=== PATIENT | female | born 1950 | race Caucasian/White ===

== ENCOUNTER 2017-02-01 09:40 | Outpatient (CLI) | payer OTHER ==
--- NOTE | 2017-02-01 14:59 | DIAGNOSTIC IMAGING REPORT ---
PROCEDURE: MG BILATERAL SCREENING W/CAD INDICATION: Screening, personal history of benign left stereotactic biopsy. Family history of breast cancer in the mother TECHNIQUE: Standard CC and MLO views bilaterally. Computer aided detection was used. COMPARISON: None available. Patient reports prior mammograms in [place]. FINDINGS: Moderately dense, heterogeneous, nodular fibroglandular tissue is present bilaterally. Biopsy clip present at the 12 o'clock left breast at a posterior depth. No developing densities, areas of architectural distortion, or suspicious microcalcifications. IMPRESSION: 1. Probably normal mammograms without radiographic evidence of malignancy. 2. An addendum will be issued when comparison films become available. RESULT CODE: 0- Incomplete; needs additional evaluation. A. A negative report should not delay biopsy if a dominant or clinically suspicious mass is present. 10-15% of cancers are not identified by x-ray. B. A negative report may reinforce clinical impression. C. Adenosis and dense breasts may obscure an underlying neoplasm. D. False positive reports average 6-10%. E.. A yearly screening mammogram is recommended. A reminder letter will be scheduled.
== END 2017-02-01 23:00 ==
LOC: MAM SRH 09:40
DX: Z12.31 Encounter for screening mammogram for malignant neoplasm of breast (principal); Z80.3 Family history of malignant neoplasm of breast

== ENCOUNTER 2017-04-24 16:39 | Emergency (ER) | payer OTHER ==
--- NOTE | 2017-04-24 20:44 | ED NURSING NOTES ---
Clinical Report - Nurses [facility] [address] [place] [address] 04/24/2017 16:39 Patient: TANO MASTERS TRIAGE Triage time 16:57 Apr 24 2017. Acuity: LEVEL 3. Chief Complaint: LOW BACK PAIN and ABNORMAL BLEEDING. Alert. No acute distress. SEPSIS SCREEN: Sepsis Screen. Negative (no infection suspected/documented). --17:08 Jennie Yañez R.N. 16:57 04/24/17. BP: 151/103. HR: 69. RR: 16. O2 saturation: 92%. Temp: 90 F. Pain level now: 04/10. --17:08 Jennie Yañez R.N. Weight: 73.4 kg stated. Height/Length: 65 inches Per Patient. BMI: 27. --17:06 Jennie Yañez R.N. Medications AllerClear. --16:59 Jennie Yañez R.N. Atenolol Oral (Tablet 50 mg) 1 tablet, daily. --16:59 Jennie Yañez R.N. BuPROPion HCl Oral 150 mg, daily. --16:59 Jennie Yañez R.N. Carvedilol Phosphate ER Oral (Capsule Extended Release 24 Hour 80 mg) 12.5 mg, twice daily. --17:00 Jennie Yañez R.N. Citalopram Hydrobromide Oral (Tablet 40 mg) 1 tablet, daily. --17:00 Jennie Yañez R.N. Fluticasone Propionate Nasal. --17:01 Jennie Yañez R.N. Lactulose Oral (Solution 10 gm/15mL) 1 tablespoon, 3x a day. --17:01 Jennie Yañez R.N. Lisinopril Oral (Tablet 30 mg) 1 tablet, daily. --17:02 Knebel, Jennie, R.N. Ocuvite Oral. --17:02 Jennie Yañez R.N. Ranitidine HCl Oral. --17:02 Jennie Yañez R.N. Trospium Chloride Oral. --17:03 Jennie Yañez R.N. Allergies None. --17:03 Jennie Yañez R.N. History Arrived by private vehicle. Historian: patient. Accompanied by family. Onset. (3 days ago). 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 PAST MEDICAL HX: Immunizations: up-to-date. SOCIAL HX: Smoker- current status unknown. No alcohol use or drug use. No infectious disease exposure. SELF HARM ASSESSMENT: A self harm assessment was performed. The patient answered "no" to the question "Do you have thoughts of harming or killing yourself?". Family at bedside. ABUSE ASSESSMENT: Abuse assessment: The patient was asked "Do you feel safe in your home?". FALL RISK ASSESSMENT: Fall risk assessment completed. Risk factors identified include patient impairment of mobility. --17:08 Jennie Yañez R.N. PROBLEMS: Monitoring liver. Hypertension. --17:05 Jennie Yañez R.N. Interventions ID band on patient. To room. --17:08 Jennie Yañez R.N. PHYSICAL ASSESSMENT Ambulatory to room. GENERAL / NEURO / PSYCH: Alert. Oriented X 4. Appears in pain. RESPIRATORY: Respirations not labored. CVS: Capillary refill less than 2 seconds. GI / : Abdomen soft and nontender. SKIN: Skin is warm and dry. --17:12 Jennie Yañez R.N. NURSING PROGRESS NOTES Pulse oximeter and NIBP monitor placed on patient; monitoring specialist- Lead II; monitor alarms on. Patient gowned. Head of bed elevated. Patient identifiers checked. Call light placed in reach. Side rails up x 1. Bed placed in lowest position. Brakes of bed on. --17:12 Jennie Yañez R.N. PELVIC EXAM: Preparation. (set up for pelvic exam). --17:19 Jennie Yañez R.N. 18:53 04/24/2017 Site #1 started via IV in the left wrist with an 22g angiocath, with aseptic technique and good blood return; two attempts. Blood drawn: rainbow set. Labeled in the presence of the patient and sent to the lab. Saline lock flushed with 10 mL saline. --18:53 Jennie Yañez R.N. 19:48 04/24/17. BP: 172/82. HR: 68. RR: 16. O2 saturation: 96%. Pain level now: 04/10. --19:50 Jennie Yañez R.N. 19:50. Checked patient name and birthdate: patient confirmed. Blood samples drawn from the right forearm by tech per protocol ; labeled in presence of the patient and sent to lab. (ammonia (green top on ice)). --19:54 Lisa Forman, NITHIN Tech1. DISPOSITION / DISCHARGE Departure time: 21:Apr 24 2017. Condition at departure: unchanged. No learning barriers present. Discharge instructions provided and reviewed with the patient. Reviewed medication(s) side effects, precautions, dosing and course information. Prescription(s) given to the patient. Reviewed referral to a primary care physician for followup. Patient verbalized understanding. Written instructions provided in Turkish. The patient was discharged home and accompanied by family. She left the Emergency Department ambulatory and via private vehicle. Family member driving. FALL RISK ASSESSMENT: Fall risk assessment completed. No fall risk identified. --21:10 Jennie Yañez R.N. 21:11 04/24/17. BP: 164/85. HR: 72. RR: 16. O2 saturation: 97%. Pain level now: 04/10. --21:11 Jennie Yañez R.N. Locked/Released at 04/24/2017 21:11 by Jennie Yañez R.N.
--- NOTE | 2017-04-24 20:44 | ED NURSING NOTES ---
Clinical Report - Nurses [facility] [address] [place] [address] 04/24/2017 16:39 Patient: TANO MASTERS TRIAGE Triage time 16:57 Apr 24 2017. Acuity: LEVEL 3. Chief Complaint: LOW BACK PAIN and ABNORMAL BLEEDING. Alert. No acute distress. SEPSIS SCREEN: Sepsis Screen. Negative (no infection suspected/documented). --17:08 Jennie Yañez R.N. 16:57 04/24/17. BP: 151/103. HR: 69. RR: 16. O2 saturation: 92%. Temp: 90 F. Pain level now: 04/10. --17:08 Jennie Yñaez R.N. Weight: 73.4 kg stated. Height/Length: 65 inches Per Patient. BMI: 27. --17:06 Jennie Yañez R.N. Medications AllerClear. --16:59 Jennie Yañez R.N. Atenolol Oral (Tablet 50 mg) 1 tablet, daily. --16:59 Jennie Yañez R.N. BuPROPion HCl Oral 150 mg, daily. --16:59 Jennie Yañez R.N. Carvedilol Phosphate ER Oral (Capsule Extended Release 24 Hour 80 mg) 12.5 mg, twice daily. --17:00 Jennie Yañez R.N. Citalopram Hydrobromide Oral (Tablet 40 mg) 1 tablet, daily. --17:00 Jennie Yañez R.N. Fluticasone Propionate Nasal. --17:01 Jennie Yañez R.N. Lactulose Oral (Solution 10 gm/15mL) 1 tablespoon, 3x a day. --17:01 Jennie Yañez R.N. Lisinopril Oral (Tablet 30 mg) 1 tablet, daily. --17:02 Knebel, Jennie, R.N. Ocuvite Oral. --17:02 Jennie Yañez R.N. Ranitidine HCl Oral. --17:02 Jennie Yañez R.N. Trospium Chloride Oral. --17:03 Jennie Yañez R.N. Allergies None. --17:03 Jennie Yañez R.N. History Arrived by private vehicle. Historian: patient. Accompanied by family. Onset. (3 days ago). 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 PAST MEDICAL HX: Immunizations: up-to-date. SOCIAL HX: Smoker- current status unknown. No alcohol use or drug use. No infectious disease exposure. SELF HARM ASSESSMENT: A self harm assessment was performed. The patient answered "no" to the question "Do you have thoughts of harming or killing yourself?". Family at bedside. ABUSE ASSESSMENT: Abuse assessment: The patient was asked "Do you feel safe in your home?". FALL RISK ASSESSMENT: Fall risk assessment completed. Risk factors identified include patient impairment of mobility. --17:08 Jennie Yañez R.N. PROBLEMS: Monitoring liver. Hypertension. --17:05 Jennie Yañez R.N. Interventions ID band on patient. To room. --17:08 Jennie Yañez R.N. PHYSICAL ASSESSMENT Ambulatory to room. GENERAL / NEURO / PSYCH: Alert. Oriented X 4. Appears in pain. RESPIRATORY: Respirations not labored. CVS: Capillary refill less than 2 seconds. GI / : Abdomen soft and nontender. SKIN: Skin is warm and dry. --17:12 Jennie Yañez R.N. NURSING PROGRESS NOTES Pulse oximeter and NIBP monitor placed on patient; shank cutter- Lead II; monitor alarms on. Patient gowned. Head of bed elevated. Patient identifiers checked. Call light placed in reach. Side rails up x 1. Bed placed in lowest position. Brakes of bed on. --17:12 Jennie Yañez R.N. PELVIC EXAM: Preparation. (set up for pelvic exam). --17:19 Jennie Yañez R.N. 18:53 04/24/2017 Site #1 started via IV in the left wrist with an 22g angiocath, with aseptic technique and good blood return; two attempts. Blood drawn: rainbow set. Labeled in the presence of the patient and sent to the lab. Saline lock flushed with 10 mL saline. --18:53 Jennie Yañez R.N. 19:48 04/24/17. BP: 172/82. HR: 68. RR: 16. O2 saturation: 96%. Pain level now: 04/10. --19:50 Jennie Yañez R.N. 19:50. Checked patient name and birthdate: patient confirmed. Blood samples drawn from the right forearm by tech per protocol ; labeled in presence of the patient and sent to lab. (ammonia (green top on ice)). --19:54 Lisa Forman, NITHIN Tech1. DISPOSITION / DISCHARGE Departure time: 21:Apr 24 2017. Condition at departure: unchanged. No learning barriers present. Discharge instructions provided and reviewed with the patient. Reviewed medication(s) side effects, precautions, dosing and course information. Prescription(s) given to the patient. Reviewed referral to a primary care physician for followup. Patient verbalized understanding. Written instructions provided in Tanzanian. The patient was discharged home and accompanied by family. She left the Emergency Department ambulatory and via private vehicle. Family member driving. FALL RISK ASSESSMENT: Fall risk assessment completed. No fall risk identified. --21:10 Jennie Yañez R.N. 21:11 04/24/17. BP: 164/85. HR: 72. RR: 16. O2 saturation: 97%. Pain level now: 04/10. --21:11 Jennie Yañez R.N. Locked/Released at 04/24/2017 21:11 by Jennie Yañez R.N.
--- NOTE | 2017-04-24 20:44 | ED ORDER SUMMARY ---
..... Patient: TANO MASTERS OrderSheet [facility] VisitID: [id number] [place] [address] 66y, F Registration Date/Time: 04/24/2017 ORDER SHEET Weight: 73.4 kg (stated) Allergies: None GENERAL ORDERS: GC/Chlamydia (Cervix) (cervix) Urgent (17:15 04/24/2017 Shen NAIK) (Ack 17:17 Gildardo) (19:22 KKnebel R.N.) Wet Prep (Cervix) (cervix) Urgent (17:16 04/24/2017 Shen NAIK) (Ack 17:17 Gildardo) (19:22 KKnebel R.N.) CBC w Diff Urgent (17:16 04/24/2017 Shen NAIK) (Ack 17:17 Gildardo) (18:53 KKnebel R.N.) CMP Urgent (17:16 04/24/2017 Shen NAIK) (Ack 17:17 Gildardo) (18:53 KKnebel R.N.) UA-Culture if indicated Urgent (17:16 04/24/2017 Shen NAIK) (Ack 17:17 Gildardo) (19:21 KKnebel R.N.) Amylase Urgent (17:16 04/24/2017 Shen NAIK) (Ack 17:17 Gildardo) (18:53 KKnebel R.N.) Lipase Urgent (17:16 04/24/2017 Shen NAIK) (Ack 17:17 Gildardo) (18:53 KKnebel R.N.) Ammonia Level Urgent (17:16 04/24/2017 Shen NAIK) (Ack 17:17 Gildardo) (18:53 KKnebel R.N.) Pelvic Exam Setup (17:16 04/24/2017 Shen NAIK) (18:00 ALawrence ER Tech1) MEDICATION ORDERS: IV FLUIDS: IV Saline Lock (17:16 04/24/2017 Shen NAIK) (18:54 KKnebel R.N.) ORDER SHEET NOTES: [Electronically signed by Jennie Yañez R.N. (21:11 04/24/2017)] [Electronically signed by Td Dial MD (03:04 05/02/2017)] [Electronically locked/signed by Jennie Yañez R.N. (21:11 04/24/2017)]
--- NOTE | 2017-04-24 20:44 | ED CLINICAL REPORT ---
Clinical Report - Physicians/Mid Levels [facility] [address] [place] [address] 04/24/2017 16:39 Patient: TANO MASTERS Time Seen: 17:05. Arrived- By private vehicle. Historian- patient. HISTORY OF PRESENT ILLNESS Chief Complaint: BACK PAIN. It is described as being moderate in degree and in the area of the lower lumbar spine. The quality is noted to be aching. No radiation. Onset- several days ago and it is still present. It was gradual in onset and has been constant. No bladder dysfunction, bowel dysfunction, sensory loss or motor loss. Patient denies an injury. REVIEW OF SYSTEMS No chills, fever, sweats, calf pain or chest pain. No cough, difficulty breathing, pedal edema, palpitations or abdominal pain. No black stools, bloody stools, constipation, diarrhea or nausea. No vomiting or urinary problems. The patient has had abnormal bleeding (this was noted on her undewear. It is not clear where it originated from). Her periods have consisted of spotting only. All systems otherwise negative, except as recorded above. SOCIAL HISTORY Never smoker. No alcohol use or drug use. FAMILY HISTORY Denies family medical history. ADDITIONAL NOTES The nursing notes have been reviewed. PHYSICAL EXAM Vital Signs: 04/24/2017 16:57 BP: 151/103. HR: 69. RR: 16. O2 saturation: 92%. Temp: 90 F. Pain level now: 5/10. Have been reviewed. Appearance: Alert. Eyes: Pupils equal, round and reactive to light. ENT: Pharynx normal. Neck: Normal inspection. Neck nontender. Painless ROM. CVS: Heart sounds normal. Respiratory: No respiratory distress. Breath sounds normal. Abdomen: No visible injury. Soft. Distention (mild - with a positive fluid wave). Back: Normal inspection. Painless ROM. : Normal external exam. Speculum exam normal. No vaginal bleeding. Bimanual exam normal. No tenderness present on bimanual exam. Rectal: Rectal exam normal and nontender. Stool heme negative. (POC test reference range: negative). Skin: Skin warm and dry. Normal skin color. Normal skin turgor. Extremities: Extremities exhibit normal ROM. Extremities nontender. No calf tenderness. LABS, X-RAYS, AND EKG Laboratory Tests: UA-Culture if indicated: (MARILY: 04/24/2017 19:10) ( [facility] 04/24/2017 19:38) Final results Test Result Flag Units (Reference) URINE COLOR YELLOW URINE APPEARANCE CLEAR URINE GLUCOSE NEGATIVE (NEGATIVE) URINE BILIRUBIN NEGATIVE (NEGATIVE) URINE KETONE NEGATIVE (NEGATIVE) URINE SPECIFIC GRAVITY >= 1.030 (1.010-1.030) URINE PH 6.0 (5.0-8.0) URINE PROTEIN NEGATIVE (NEGATIVE) URINE UROBILINOGEN 0.2 EU/dL (0.2-1.0) URINE NITRITE NEGATIVE (NEGATIVE) URINE BLOOD NEGATIVE (NEGATIVE) URINE LEUK ESTERASE NEGATIVE (NEGATIVE) URINE RBC NONE SEEN rbc/hpf (0-1) URINE WBC 0-1 wbc/hpf (0-1) URINE EPITHELIAL CELLS 1-3 EPI/hpf (0-5) URINE BACTERIA TRACE (<1+) (NONE SEEN) URINE COMMENT CULT NOT INDICATED 1+ AMORPHOUSURINE CULTURES ARE SET-UP BASED ON THE FOLLOWING CRITERIA:POSITIVE NITRITEPOSITIVE LEUKOCYTE ESTERASEGREATER THAN 10 WHITE BLOOD CELLSMODERATE (2+) OR GREATER BACTERIA CBC w Diff: (MARILY: 04/24/2017 18:45) ( [facility] 04/24/2017 19:23) Final results Test Result Flag Units (Reference) WHITE BLOOD COUNT 9.6 K/uL (4.5-11.5) RED BLOOD COUNT 4.45 M/uL (4.00-5.20) HEMOGLOBIN 14.1 gm/dL (12.0-16.0) HEMATOCRIT 41.3 % (36.0-46.0) MEAN CELL VOLUME 93 fL (80-100) MEAN CORPUSCULAR HGB 32 pg (26-34) MEAN CORPUSCULAR HGB CONC 34 g/dL (31-37) RED CELL DISTRIBUTION WIDTH 12.6 % (11.6-14.8) PLATELET COUNT 155 K/uL (150-400) NEUTROPHIL % 52.9 % (50-75) LYMPH % 35.7 % (25-40) MONO % 8.4 % (3-14) EOSINOPHIL % 1.6 % (0-4) BASOPHIL % 1.4 % (0-2) Ammonia Level: (MARILY: 04/24/2017 19:50) ( [facility] [place] 20:30) Final results Test Result Flag Units (Reference) AMMONIA 8 L umol/L (11-32) CMP: (MARILY: 04/24/2017 18:45) ( [facility] [place] 19:38) Final results Test Result Flag Units (Reference) GLUCOSE 103 mg/dL (70-110) BUN 14 mg/dL (7-18) CREATININE 0.8 mg/dL (0.6-1.3) Estimated GFR >60 mL/min Estimated GFR- >60 mL/min Note: Persistent reduction over 3 months in eGFR<60 mL/min/1.73 m2 defines CKD. Patients with eGFR values>=60 mL/min/1.73 m2 may also have CKD if evidence ofpersistent proteinuria. Additional information may be foundat www.kidney.org. SODIUM 141 mmol/L (136-145) POTASSIUM 4.2 mmol/L (3.5-5.1) CHLORIDE 106 mmol/L (98-107) CARBON DIOXIDE 25 mmol/L (21-32) CALCIUM 9.0 mg/dL (8.5-10.1) TOTAL PROTEIN 7.5 g/dL (6.4-8.2) ALBUMIN 3.4 g/dL (3.3-5.0) BILIRUBIN, TOTAL 1.3 H mg/dL (0.0-1.0) ALKALINE PHOSPHATASE 100 U/L (46-116) AST (SGOT) 39 H U/L (15-37) ALT (SGPT) 50 U/L (12-78) LIPASE 170 U/L (73-393) AMYLASE 69 U/L (25-115) 2017:[id number]: (MARILY: 04/24/2017 19:10) ( [facility] 04/27/2017 06:08) Final results SPECIMEN DESCRIPTION: CERVIX Test Result Flag Units (Reference) CHLAMYDIA TRACHOMATIS EDWIN Negative NEISSERIA GONORRHOEAE EDWIN Negative Performed at: [facility] [address] [id number] Curing Machine Operator: Arnulfo Lu MD, Phone: [phone] Wet Prep: (MARILY: 04/24/2017 19:10) ( MsgRcvd 04/24/2017 19:31) Final results SPECIMEN DESCRIPTION: CERVIX Test Result Flag Units (Reference) WET MOUNT CLUE CELLS:: MODERATE * EPITHELIAL CELLS: MODERATE -- SOURCE?: CERVIX WHITE BLOOD CELLS: MODERATE TRICHOMONAS:: CERVIX -- YEAST:: NONE . PROGRESS AND PROCEDURES Course of Care: Patient is stable. Patient/family counseled. Old medical records reviewed. Disposition: Discharged. Condition: stable. CLINICAL IMPRESSION Nontraumatic lumbar back pain. possible bleeding - uncertain source. INSTRUCTIONS No lifting greater than 5 lbs or no bending or stooping. Warnings: Further evaluation is necessary in order to conduct further tests and assess the possibility of serious illness. It is very important to follow up with a physician. GENERAL WARNINGS: Return or contact your physician immediately if your condition worsens or changes unexpectedly, if not improving as expected, or if other problems arise. Your Current Medications: CONTINUE TAKING THE FOLLOWING MEDICATIONS: AllerClear*. Atenolol Oral : Tablet 50 mg, 1 tablet daily. BuPROPion HCl Oral : 150 mg daily. Carvedilol Phosphate ER Oral : Capsule Extended Release 24 Hour 80 mg, 12.5 mg twice daily. Citalopram Hydrobromide Oral : Tablet 40 mg, 1 tablet daily. Fluticasone Propionate Nasal. Lactulose Oral : Solution 10 gm/15mL, 1 tablespoon 3x a day. Lisinopril Oral : Tablet 30 mg, 1 tablet daily. Ocuvite Oral. Ranitidine HCl Oral. Trospium Chloride Oral. OTC Medications: Motrin (available over the counter): take according to label instructions. Follow-up: Follow up with your doctor VERONICA SEO in seven days. Call for the next available appointment. Understanding of the discharge instructions verbalized by patient and family. (Electronically signed by Td Dial MD 05/02/2017 3:04) Addenda for TANO MASTESR VisitID: [id number] Date: 04/24/2017 04/25/2017 13:27 contact made with pt's daughter, called rx for Metronidiazole 500 mg 1 po bid #14, to [facility] on [address] (Electronically signed by Therese Johns R.N. - 04/25/2017 13:27)
--- NOTE | 2017-04-24 20:44 | ED CLINICAL REPORT ---
Clinical Report - Physicians/Mid Levels [facility] [address] [place] [address] 04/24/2017 16:39 Patient: TANO MASTERS Time Seen: 17:05. Arrived- By private vehicle. Historian- patient. HISTORY OF PRESENT ILLNESS Chief Complaint: BACK PAIN. It is described as being moderate in degree and in the area of the lower lumbar spine. The quality is noted to be aching. No radiation. Onset- several days ago and it is still present. It was gradual in onset and has been constant. No bladder dysfunction, bowel dysfunction, sensory loss or motor loss. Patient denies an injury. REVIEW OF SYSTEMS No chills, fever, sweats, calf pain or chest pain. No cough, difficulty breathing, pedal edema, palpitations or abdominal pain. No black stools, bloody stools, constipation, diarrhea or nausea. No vomiting or urinary problems. The patient has had abnormal bleeding (this was noted on her undewear. It is not clear where it originated from). Her periods have consisted of spotting only. All systems otherwise negative, except as recorded above. SOCIAL HISTORY Never smoker. No alcohol use or drug use. FAMILY HISTORY Denies family medical history. ADDITIONAL NOTES The nursing notes have been reviewed. PHYSICAL EXAM Vital Signs: 04/24/2017 16:57 BP: 151/103. HR: 69. RR: 16. O2 saturation: 92%. Temp: 90 F. Pain level now: 5/10. Have been reviewed. Appearance: Alert. Eyes: Pupils equal, round and reactive to light. ENT: Pharynx normal. Neck: Normal inspection. Neck nontender. Painless ROM. CVS: Heart sounds normal. Respiratory: No respiratory distress. Breath sounds normal. Abdomen: No visible injury. Soft. Distention (mild - with a positive fluid wave). Back: Normal inspection. Painless ROM. : Normal external exam. Speculum exam normal. No vaginal bleeding. Bimanual exam normal. No tenderness present on bimanual exam. Rectal: Rectal exam normal and nontender. Stool heme negative. (POC test reference range: negative). Skin: Skin warm and dry. Normal skin color. Normal skin turgor. Extremities: Extremities exhibit normal ROM. Extremities nontender. No calf tenderness. LABS, X-RAYS, AND EKG Laboratory Tests: UA-Culture if indicated: (MARILY: 04/24/2017 19:10) ( [facility] 04/24/2017 19:38) Final results Test Result Flag Units (Reference) URINE COLOR YELLOW URINE APPEARANCE CLEAR URINE GLUCOSE NEGATIVE (NEGATIVE) URINE BILIRUBIN NEGATIVE (NEGATIVE) URINE KETONE NEGATIVE (NEGATIVE) URINE SPECIFIC GRAVITY >= 1.030 (1.010-1.030) URINE PH 6.0 (5.0-8.0) URINE PROTEIN NEGATIVE (NEGATIVE) URINE UROBILINOGEN 0.2 EU/dL (0.2-1.0) URINE NITRITE NEGATIVE (NEGATIVE) URINE BLOOD NEGATIVE (NEGATIVE) URINE LEUK ESTERASE NEGATIVE (NEGATIVE) URINE RBC NONE SEEN rbc/hpf (0-1) URINE WBC 0-1 wbc/hpf (0-1) URINE EPITHELIAL CELLS 1-3 EPI/hpf (0-5) URINE BACTERIA TRACE (<1+) (NONE SEEN) URINE COMMENT CULT NOT INDICATED 1+ AMORPHOUSURINE CULTURES ARE SET-UP BASED ON THE FOLLOWING CRITERIA:POSITIVE NITRITEPOSITIVE LEUKOCYTE ESTERASEGREATER THAN 10 WHITE BLOOD CELLSMODERATE (2+) OR GREATER BACTERIA CBC w Diff: (MARILY: 04/24/2017 18:45) ( [facility] 04/24/2017 19:23) Final results Test Result Flag Units (Reference) WHITE BLOOD COUNT 9.6 K/uL (4.5-11.5) RED BLOOD COUNT 4.45 M/uL (4.00-5.20) HEMOGLOBIN 14.1 gm/dL (12.0-16.0) HEMATOCRIT 41.3 % (36.0-46.0) MEAN CELL VOLUME 93 fL (80-100) MEAN CORPUSCULAR HGB 32 pg (26-34) MEAN CORPUSCULAR HGB CONC 34 g/dL (31-37) RED CELL DISTRIBUTION WIDTH 12.6 % (11.6-14.8) PLATELET COUNT 155 K/uL (150-400) NEUTROPHIL % 52.9 % (50-75) LYMPH % 35.7 % (25-40) MONO % 8.4 % (3-14) EOSINOPHIL % 1.6 % (0-4) BASOPHIL % 1.4 % (0-2) Ammonia Level: (MARILY: 04/24/2017 19:50) ( [facility] 04/24/2017 20:30) Final results Test Result Flag Units (Reference) AMMONIA 8 L umol/L (11-32) CMP: (MARILY: 04/24/2017 18:45) ( [facility] 04/24/2017 19:38) Final results Test Result Flag Units (Reference) GLUCOSE 103 mg/dL (70-110) BUN 14 mg/dL (7-18) CREATININE 0.8 mg/dL (0.6-1.3) Estimated GFR >60 mL/min Estimated GFR- >60 mL/min Note: Persistent reduction over 3 months in eGFR<60 mL/min/1.73 m2 defines CKD. Patients with eGFR values>=60 mL/min/1.73 m2 may also have CKD if evidence ofpersistent proteinuria. Additional information may be foundat www.[email or web address].org. SODIUM 141 mmol/L (136-145) POTASSIUM 4.2 mmol/L (3.5-5.1) CHLORIDE 106 mmol/L (98-107) CARBON DIOXIDE 25 mmol/L (21-32) CALCIUM 9.0 mg/dL (8.5-10.1) TOTAL PROTEIN 7.5 g/dL (6.4-8.2) ALBUMIN 3.4 g/dL (3.3-5.0) BILIRUBIN, TOTAL 1.3 H mg/dL (0.0-1.0) ALKALINE PHOSPHATASE 100 U/L (46-116) AST (SGOT) 39 H U/L (15-37) ALT (SGPT) 50 U/L (12-78) LIPASE 170 U/L (73-393) AMYLASE 69 U/L (25-115) 2017:[id number]: (MARILY: 04/24/2017 19:10) ( [facility] 04/27/2017 06:08) Final results SPECIMEN DESCRIPTION: CERVIX Test Result Flag Units (Reference) CHLAMYDIA TRACHOMATIS EDWIN Negative NEISSERIA GONORRHOEAE EDWIN Negative Performed at: [facility] [address] [id number] [place] Molder: Arnulfo Lu MD, Phone: [phone] Wet Prep: (MARILY: 04/24/2017 19:10) ( MsgRcvd 04/24/2017 19:31) Final results SPECIMEN DESCRIPTION: CERVIX Test Result Flag Units (Reference) WET MOUNT CLUE CELLS:: MODERATE * EPITHELIAL CELLS: MODERATE -- SOURCE?: CERVIX WHITE BLOOD CELLS: MODERATE TRICHOMONAS:: CERVIX -- YEAST:: NONE . PROGRESS AND PROCEDURES Course of Care: Patient is stable. Patient/family counseled. Old medical records reviewed. Disposition: Discharged. Condition: stable. CLINICAL IMPRESSION Nontraumatic lumbar back pain. possible bleeding - uncertain source. INSTRUCTIONS No lifting greater than 5 lbs or no bending or stooping. Warnings: Further evaluation is necessary in order to conduct further tests and assess the possibility of serious illness. It is very important to follow up with a physician. GENERAL WARNINGS: Return or contact your physician immediately if your condition worsens or changes unexpectedly, if not improving as expected, or if other problems arise. Your Current Medications: CONTINUE TAKING THE FOLLOWING MEDICATIONS: AllerClear*. Atenolol Oral : Tablet 50 mg, 1 tablet daily. BuPROPion HCl Oral : 150 mg daily. Carvedilol Phosphate ER Oral : Capsule Extended Release 24 Hour 80 mg, 12.5 mg twice daily. Citalopram Hydrobromide Oral : Tablet 40 mg, 1 tablet daily. Fluticasone Propionate Nasal. Lactulose Oral : Solution 10 gm/15mL, 1 tablespoon 3x a day. Lisinopril Oral : Tablet 30 mg, 1 tablet daily. Ocuvite Oral. Ranitidine HCl Oral. Trospium Chloride Oral. OTC Medications: Motrin (available over the counter): take according to label instructions. Follow-up: Follow up with your doctor VERONICA SEO in seven days. Call for the next available appointment. Understanding of the discharge instructions verbalized by patient and family. (Electronically signed by Td Dial MD 05/02/2017 3:04) Addenda for TANO MASTERS VisitID: [id number] Date: 04/24/2017 04/25/2017 13:27 contact made with pt's daughter, called rx for Metronidiazole 500 mg 1 po bid #14, to [facility] on [address] (Electronically signed by Therese Johns R.N. - 04/25/2017 13:27)
--- NOTE | 2017-04-24 20:44 | ED ORDER SUMMARY ---
..... Patient: TANO MASTERS OrderSheet [facility] VisitID: [id number] [place] [address] 66y, F Registration Date/Time: 04/24/2017 ORDER SHEET Weight: 73.4 kg (stated) Allergies: None GENERAL ORDERS: GC/Chlamydia (Cervix) (cervix) Urgent (17:15 04/24/2017 Shen NAIK) (Ack 17:17 Gildardo) (19:22 KKnebel R.N.) Wet Prep (Cervix) (cervix) Urgent (17:16 04/24/2017 Shen NAIK) (Ack 17:17 Gildardo) (19:22 KKnebel R.N.) CBC w Diff Urgent (17:16 04/24/2017 Shen NAIK) (Ack 17:17 Gildardo) (18:53 KKnebel R.N.) CMP Urgent (17:16 04/24/2017 Shen NAIK) (Ack 17:17 Gildardo) (18:53 KKnebel R.N.) UA-Culture if indicated Urgent (17:16 04/24/2017 Shen NAIK) (Ack 17:17 Gildardo) (19:21 KKnebel R.N.) Amylase Urgent (17:16 04/24/2017 Shen NAIK) (Ack 17:17 Gildardo) (18:53 KKnebel R.N.) Lipase Urgent (17:16 04/24/2017 Shen NAIK) (Ack 17:17 Gildardo) (18:53 KKnebel R.N.) Ammonia Level Urgent (17:16 04/24/2017 Shen NAIK) (Ack 17:17 Gildardo) (18:53 KKnebel R.N.) Pelvic Exam Setup (17:16 04/24/2017 Shen NAIK) (18:00 ALawrence ER Tech1) MEDICATION ORDERS: IV FLUIDS: IV Saline Lock (17:16 04/24/2017 Shen NAIK) (18:54 KKnebel R.N.) ORDER SHEET NOTES: [Electronically signed by Jennie Yañez R.N. (21:11 04/24/2017)] [Electronically signed by Td Dial MD (03:04 05/02/2017)] [Electronically locked/signed by Jennie Yañez R.N. (21:11 04/24/2017)]
--- NOTE | 2017-05-02 03:04 | ED DISCHARGE INSTRUCTIONS ---
Patient: TANO MASTERS General Instructions [facility] VisitID: [id number] [place] [address] 66y, F Registration Date/Time: 04/24/2017 Nontraumatic lumbar back pain. INSTRUCTIONS No lifting greater than 5 lbs or no bending or stooping. Warnings: Further evaluation is necessary in order to conduct further tests and assess the possibility of serious illness. It is very important to follow up with a physician. GENERAL WARNINGS: Return or contact your physician immediately if your condition worsens or changes unexpectedly, if not improving as expected, or if other problems arise. Your Current Medications: CONTINUE TAKING THE FOLLOWING MEDICATIONS: AllerClear*. Atenolol Oral : Tablet 50 mg, 1 tablet daily. BuPROPion HCl Oral : 150 mg daily. Carvedilol Phosphate ER Oral : Capsule Extended Release 24 Hour 80 mg, 12.5 mg twice daily. Citalopram Hydrobromide Oral : Tablet 40 mg, 1 tablet daily. Fluticasone Propionate Nasal. Lactulose Oral : Solution 10 gm/15mL, 1 tablespoon 3x a day. Lisinopril Oral : Tablet 30 mg, 1 tablet daily. Ocuvite Oral. Ranitidine HCl Oral. Trospium Chloride Oral. OTC Medications: Motrin (available over the counter): take according to label instructions. Follow-up: Follow up with your doctor VERONICA SEO in seven days. Call for the next available appointment. Understanding of the discharge instructions verbalized by patient and family. ADDITIONAL INFORMATION Back Pain [Acute Or Chronic] Back pain is usually caused by an injury to the muscles or ligaments of the spine. Sometimes the disks that separate each bone in the spine may bulge and cause pain by pressing on a nearby nerve. Back pain may also appear after a sudden twisting/bending force (such as in a car accident), after a simple awkward movement, or lifting something heavy with poor body positioning. In either case, muscle spasm is often present and adds to the pain. Acute back pain usually gets better in one to two weeks. Back pain related to disk disease, arthritis in the spinal joints or spinal stenosis (narrowing of the spinal canal) can become chronic and last for months or years. Unless you had a physical injury (for example, a car accident or fall) X-rays are usually not ordered for the initial evaluation of back pain. If pain continues and does not respond to medical treatment, x-rays and other tests may be performed at a later time. Home Care: You may need to stay in bed the first few days. But, as soon as possible, begin sitting or walking to avoid problems with prolonged bed rest (muscle weakness, worsening back stiffness and pain, blood clots in the legs). When in bed, try to find a position of comfort. A firm mattress is best. Try lying flat on your back with pillows under your knees. You can also try lying on your side with your knees bent up towards your chest and a pillow between your knees. Avoid prolonged sitting. This puts more stress on the lower back than standing or walking. During the first two days after injury, apply an ICE PACK to the painful area for 20 minutes every 2-4 hours. This will reduce swelling and pain. HEAT (hot shower, hot bath or heating pad) works well for muscle spasm. You can start with ice, then switch to heat after two days. Some patients feel best alternating ice and heat treatments. Use the one method that feels the best to you. You may use acetaminophen (Tylenol) or ibuprofen (Motrin, Advil) to control pain, unless another pain medicine was prescribed. [NOTE: If you have chronic liver or kidney disease or ever had a stomach ulcer or GI bleeding, talk with your doctor before using these medicines.] Be aware of safe lifting methods and do not lift anything over 15 pounds until all the pain is gone. Follow Up with your doctor or this facility if your symptoms do not start to improve after one week. Physical therapy may be needed. [NOTE: If X-rays were taken, they will be reviewed by a radiologist. You will be notified of any new findings that may affect your care.] Get Prompt Medical Attention if any of the following occur: Pain becomes worse or spreads to your legs Weakness or numbness in one or both legs Loss of bowel or bladder control Numbness in the groin or genital area Ibuprofen Oral tablet What is this medicine? IBUPROFEN (eye BYOO proe fen) is a non-steroidal anti-inflammatory drug (NSAID). It is used for dental pain, fever, headaches or migraines, osteoarthritis, rheumatoid arthritis, or painful monthly periods. It can also relieve minor aches and pains caused by a cold, flu, or sore throat. How should I use this medicine? Take this medicine by mouth with a glass of water. Follow the directions on the prescription label. Take this medicine with food if your stomach gets upset. Try to not lie down for at least 10 minutes after you take the medicine. Take your medicine at regular intervals. Do not take your medicine more often than directed. A special MedGuide will be given to you by the pharmacist with each prescription and refill. Be sure to read this information carefully each time. Talk to your waste reduction coordinator regarding the use of this medicine in children. Special care may be needed. What side effects may I notice from receiving this medicine? Side effects that you should report to your doctor or health healthcare social worker as soon as possible: allergic reactions like skin rash, itching or hives, swelling of the face, lips, or tongue black or bloody stools, blood in the urine or in vomit breathing problems changes in vision chest pain general ill feeling or flu-like symptoms nausea or vomiting redness, blistering, peeling or loosening of the skin, including inside the mouth slurred speech or weakness on one side of the body stomach pain unexplained weight gain or swelling unusually weak or tired yellowing of eyes or skin Side effects that usually do not require medical attention (report to your doctor or health healthcare social worker if they continue or are bothersome): constipation or diarrhea dizziness gas or heartburn stomach upset What may interact with this medicine? Do not take this medicine with any of the following medications: cidofovir ketorolac methotrexate pemetrexed This medicine may also interact with the following medications: alcohol aspirin diuretics lithium other drugs for inflammation like prednisone warfarin What if I miss a dose? If you miss a dose, take it as soon as you can. If it is almost time for your next dose, take only that dose. Do not take double or extra doses. Where should I keep my medicine? Keep out of the reach of children. Store at room temperature between 15 and 30 degrees C (59 and 86 degrees F). Keep container tightly closed. Throw away any unused medicine after the expiration date. What should I tell my health care provider before I take this medicine? They need to know if you have any of these conditions: asthma cigarette smoker drink more than 3 alcohol containing drinks a day heart disease or circulation problems such as heart failure or leg edema (fluid retention) high blood pressure kidney disease liver disease stomach bleeding or ulcers an unusual or allergic reaction to ibuprofen, aspirin, other NSAIDS, other medicines, foods, dyes, or preservatives or trying to get breast-feeding What should I watch for while using this medicine? Tell your doctor or healthcare professional if your symptoms do not start to get better or if they get worse. This medicine does not prevent heart attack or stroke. In fact, this medicine may increase the chance of a heart attack or stroke. The chance may increase with longer use of this medicine and in people who have heart disease. If you take aspirin to prevent heart attack or stroke, talk with your doctor or health healthcare social worker. Do not take other medicines that contain aspirin, ibuprofen, or naproxen with this medicine. Side effects such as stomach upset, nausea, or ulcers may be more likely to occur. Many medicines available without a prescription should not be taken with this medicine. This medicine can cause ulcers and bleeding in the stomach and intestines at any time during treatment. Ulcers and bleeding can happen without warning symptoms and can cause . To reduce your risk, do not smoke cigarettes or drink alcohol while you are taking this medicine. You may get drowsy or dizzy. Do not drive, use machinery, or do anything that needs mental alertness until you know how this medicine affects you. Do not stand or sit up quickly, especially if you are an older patient. This reduces the risk of dizzy or fainting spells. This medicine can cause you to bleed more easily. Try to avoid damage to your teeth and gums when you brush or floss your teeth. You have been given the following additional information: Back Pain (Acute Or Chronic) Ibuprofen Oral tablet No lifting greater than 5 lbs or no bending or stooping. (Electronically signed by Td Dial MD 05/02/2017 3:04)
--- NOTE | 2017-05-02 03:04 | ED MAR SUMMARY ---
..... Medication Administration Record [facility] [address] [place], [place] [id number] Patient: TANO MASTERS Visit ID: [id number] 66y, F Weight: 73.4 kg Height/Length: 65 in BMI: 27 ALLERGIES: None
--- NOTE | 2017-05-02 03:04 | ED MED RECONCILIATION SUMMARY ---
Patient: TANO MASTERS Medication Reconciliation Report [facility] VisitID: [id number] [address] [place] [address] 66y, F Registration Date/Time: 04/24/2017 Weight: 73.4 kg Height/Length: 65 in. BMI: 27.0 ALLERGIES: None The patient's Home Medications are listed below: CONTINUE TAKING THE FOLLOWING MEDICATIONS: AllerClear Atenolol Oral (50 mg) 1 tablet, daily BuPROPion HCl Oral 150 mg, daily Carvedilol Phosphate ER Oral (80 mg) 12.5 mg, twice daily Citalopram Hydrobromide Oral (40 mg) 1 tablet, daily Fluticasone Propionate Nasal Lactulose Oral (10 gm/15mL) 1 tablespoon, 3x a day Lisinopril Oral (30 mg) 1 tablet, daily Ocuvite Oral Ranitidine HCl Oral Trospium Chloride Oral The source(s) of the original Home Medication information: Not obtained. The following Medications were given to the patient in the Emergency Department: None. The following Medications were prescribed to the patient: Motrin (available over the counter): take according to label instructions. -- Td Dial MD
--- NOTE | 2017-05-02 03:04 | ED MED RECONCILIATION SUMMARY ---
Patient: TANO MASTERS Medication Reconciliation Report [facility] VisitID: [id number] [address] [place] [address] 66y, F Registration Date/Time: 04/24/2017 Weight: 73.4 kg Height/Length: 65 in. BMI: 27.0 ALLERGIES: None The patient's Home Medications are listed below: CONTINUE TAKING THE FOLLOWING MEDICATIONS: AllerClear Atenolol Oral (50 mg) 1 tablet, daily BuPROPion HCl Oral 150 mg, daily Carvedilol Phosphate ER Oral (80 mg) 12.5 mg, twice daily Citalopram Hydrobromide Oral (40 mg) 1 tablet, daily Fluticasone Propionate Nasal Lactulose Oral (10 gm/15mL) 1 tablespoon, 3x a day Lisinopril Oral (30 mg) 1 tablet, daily Ocuvite Oral Ranitidine HCl Oral Trospium Chloride Oral The source(s) of the original Home Medication information: Not obtained. The following Medications were given to the patient in the Emergency Department: None. The following Medications were prescribed to the patient: Motrin (available over the counter): take according to label instructions. -- Td Dial MD
--- NOTE | 2017-05-02 03:04 | ED MAR SUMMARY ---
..... Medication Administration Record [facility] [address] [place], [place] [id number] Patient: TANO MASTERS Visit ID: [id number] 66y, F Weight: 73.4 kg Height/Length: 65 in BMI: 27 ALLERGIES: None
== END 2017-04-24 21:00 | disposition home or self-care (01) ==
LOC: ED SRH 16:39
DX: M54.5 Low back pain (principal); N93.9 Abnormal uterine and vaginal bleeding, unspecified
CPT/HCPCS: 81460; 90004; 90100; 90195; 91227; 91228; 91588; 92235; 92530; 95059